=== PATIENT | male | born 1935 | race Caucasian/White ===

== ENCOUNTER 2022-01-01 10:46 | Emergency (ER) | payer OTHER, BC ==
[2022-01-01 11:03] VITALS: BP 135/72; PULSE 72; TEMP 98.7; BMI 18.3
[2022-01-01] MEDS ORDERED: DIPHTH,PERTUSS(ACELL),TET 0.5 ML DISP.SYRIN IM ONE ×2 (11:08)
== END 2022-01-01 11:20 | disposition home or self-care (01) ==
LOC: FER 10:46
PROC: 3E0234Z Introduction of Serum, Toxoid and Vaccine into Muscle, Percutaneous Approach (ICD-10-PCS; principal; 2022-01-01)
DX: S51.802A Unspecified open wound of left forearm, initial encounter (principal); R22.32 Localized swelling, mass and lump, left upper limb; Y99.9 Unspecified external cause status
CPT/HCPCS: 90471; 90715; 99284-25

== ENCOUNTER 2022-01-11 12:33 | Observation (INO) | payer OTHER, BC ==
[2022-01-11 13:37] LABS: INR 1.15 (0.83-1.09); PROTHROMBIN TIME (PATIENT) 13.2 SEC (9.7-13.0)
[2022-01-11 13:40] LABS: ACTIVATED PTT 26.1 SECONDS (25.2-36.5); HEMOGLOBIN 7.3 G/dL (11.7-16.9); MCH 26.7 pg (25.7-33.7); MEAN CELL VOLUME 80.9 fl (80-96); MEAN PLT VOLUME 10.1 fl (7.5-11.1); PLATELET COUNT 121.8 10^3/uL (134-434); RBC 2.72 10^6/uL (4.00-5.60); RDW 19.5 % (11.9-15.9); WHITE BLOOD COUNT 2.9 10^3/uL (4.0-10.8)
[2022-01-11 13:44] LABS: ALBUMIN 3.7 g/dl (3.4-5.0); BILIRUBIN,TOTAL 0.6 mg/dl (0.2-1); CALCIUM 9.2 mg/dl (8.5-10); CREATININE 1.4 mg/dl (0.55-1.3); TOT PROT 6.6 g/dl (6.4-8.2)
[2022-01-11 14:14] LABS: ADD RBC MORPHOLOGY YES
[2022-01-11 14:15] LABS: PLATELET ESTIMATE DECREASED
[2022-01-11 14:17] LABS: ANISOCYTOSIS 1+
[2022-01-11] MEDS ORDERED: ONDANSETRON *ODT* 4 MG TABLET SL PRN (15:45)
[2022-01-11 16:32] VITALS: BMI 17.8
[2022-01-11] MEDS: metFORMIN HCL 500 MG TABLET (FP) PO SCH (16:51)
[2022-01-11] MEDS: INSULIN SLIDING SCALE (NOVOLOG) 1 VIAL SQ SCH ×2 (16:52→21:30)
[2022-01-11] MEDS ORDERED: ATORVASTATIN CA 20 MG TABLET (FP) PO SCH (22:00)
[2022-01-11] MEDS ORDERED: FUROSEMIDE 40 MG/4 ML INJECTABLE VIAL IVPUSH ONE (22:05)
[2022-01-12] MEDS: INSULIN SLIDING SCALE (NOVOLOG) 1 VIAL SQ SCH ×2 (06:31→10:54)
[2022-01-12] MEDS: metFORMIN HCL 500 MG TABLET (FP) PO SCH (06:31)
[2022-01-12] MEDS ORDERED: sitaGLIPtin PHOSPHATE 50 MG TABLET PO SCH (07:00)
[2022-01-12 07:57] VITALS: BP 133/54; PULSE 53; TEMP 98.6
[2022-01-12 08:23] LABS: HEMATOCRIT 31.6 % (35.4-49); HEMOGLOBIN 10.5 G/dL (11.7-16.9); MCHC 33.2 g/dl (32.0-35.9); MEAN CELL VOLUME 84.4 fl (80-96); MEAN PLT VOLUME 9.7 fl (7.5-11.1); PLATELET COUNT 103.2 10^3/uL (134-434); RBC 3.74 10^6/uL (4.00-5.60); RDW 18.9 % (11.9-15.9)
[2022-01-12 08:28] LABS: ALBUMIN 3.8 g/dl (3.4-5.0); BILIRUBIN,TOTAL 2.1 mg/dl (0.2-1); CALCIUM 9.2 mg/dl (8.5-10); CREATININE 1.3 mg/dl (0.55-1.3); MAGNESIUM 1.9 mg/dL (1.8-2.4); TOT PROT 6.7 g/dl (6.4-8.2)
[2022-01-12 09:18] LABS: ADD RBC MORPHOLOGY YES
[2022-01-12 09:19] LABS: PLATELET ESTIMATE DECREASED
[2022-01-12 09:20] LABS: ANISOCYTOSIS 1+
[2022-01-12] MEDS ORDERED: PANTOPRAZOLE 40 MG TABLET PO SCH (10:00)
== END 2022-01-12 12:31 | disposition home or self-care (01) ==
LOC: FER 12:33 → FM/S 13:29 → INTOOBSV 13:29
PROVIDERS: ADMIT Internal Medicine; ATTEND Nurse Practitioner Acute Care
PROC: 30233N1 Transfusion of Nonautologous Red Blood Cells into Peripheral Vein, Percutaneous Approach (ICD-10-PCS; principal; 2022-01-11)
PROC: 3E033GC Introduction of Other Therapeutic Substance into Peripheral Vein, Percutaneous Approach (ICD-10-PCS; 2022-01-11)
DX: D64.9 Anemia, unspecified (principal); E11.9 Type 2 diabetes mellitus without complications; R06.00 Dyspnea, unspecified; E78.5 Hyperlipidemia, unspecified; R06.09 Other forms of dyspnea; Z85.46 Personal history of malignant neoplasm of prostate; I10 Essential (primary) hypertension; Z95.1 Presence of aortocoronary bypass graft
CPT/HCPCS: 36415; 36430; 71045-TC-FY; 80053; 81003; 82962; 83735; 85025; 85610; 85730; 86850; 86900; 86901; 86922; 87086; 93005; 96374; 99285-25; C9803-CS; G0378; P9058; U0003; U0005

== ENCOUNTER 2022-07-25 09:47 | Day surgery (SDC) | payer OTHER, BC ==
[2022-07-25] MEDS ORDERED: IRON SUCROSE IVPB ONE (11:00)
[2022-07-25] MEDS ORDERED: SODIUM CHLORIDE 0.9% IVPB ONE (11:00)
[2022-07-25 17:13] VITALS: BP 130/56; PULSE 76; RESP 20; TEMP 98.2
== END 2022-07-25 11:40 | disposition home or self-care (01) ==
LOC: JONCNONCHE 09:47 → J7W 09:48 → JONCNONCHE 11:40
PROVIDERS: ATTEND Internal Medicine Hematology & Oncology
PROC: 3E033GC Introduction of Other Therapeutic Substance into Peripheral Vein, Percutaneous Approach (ICD-10-PCS; principal; 2022-07-25)
DX: D50.9 Iron deficiency anemia, unspecified (principal)
CPT/HCPCS: 96365; J1756

== ENCOUNTER 2022-08-01 09:51 | Day surgery (SDC) | payer OTHER, BC ==
[2022-08-01] MEDS ORDERED: IRON SUCROSE INJECTION 200 MG in SODIUM CHLORIDE 100 ML IVPB ONE (10:00)
[2022-08-01 10:49] VITALS: RESP 20
[2022-08-01 13:55] VITALS: BP 132/63; PULSE 71; TEMP 98.3
== END 2022-08-01 11:30 | disposition home or self-care (01) ==
LOC: JONCNONCHE 09:51
PROVIDERS: ATTEND Internal Medicine Hematology & Oncology
PROC: 3E033GC Introduction of Other Therapeutic Substance into Peripheral Vein, Percutaneous Approach (ICD-10-PCS; principal; 2022-08-01)
DX: D50.9 Iron deficiency anemia, unspecified (principal)
CPT/HCPCS: 96365; J1756

== ENCOUNTER 2022-08-08 09:45 | Day surgery (SDC) | payer OTHER, BC ==
[2022-08-08] MEDS ORDERED: IRON SUCROSE INJECTION 200 MG in SODIUM CHLORIDE 100 ML IVPB ONE (10:00)
[2022-08-08 15:18] VITALS: BP 135/56; PULSE 67; RESP 20; TEMP 98.3
== END 2022-08-08 11:30 | disposition home or self-care (01) ==
LOC: JONCNONCHE 09:45
PROVIDERS: ATTEND Internal Medicine Hematology & Oncology
PROC: 3E033GC Introduction of Other Therapeutic Substance into Peripheral Vein, Percutaneous Approach (ICD-10-PCS; principal; 2022-08-08)
DX: D50.9 Iron deficiency anemia, unspecified (principal)
CPT/HCPCS: 96365; J1756

== ENCOUNTER 2022-08-15 10:26 | Day surgery (SDC) | payer OTHER, BC ==
[~2022-08-15 10:26] MED LIST: IRON SUCROSE INJECTION 200 MG in SODIUM CHLORIDE 100 ML IVPB ONE
[2022-08-15 14:45] VITALS: BP 140/56; PULSE 71; RESP 20; TEMP 98
== END 2022-08-15 11:30 | disposition home or self-care (01) ==
LOC: JONCNONCHE 10:26 → J7W 10:27 → JONCNONCHE 11:30
PROVIDERS: ATTEND Internal Medicine Hematology & Oncology
PROC: 3E033GC Introduction of Other Therapeutic Substance into Peripheral Vein, Percutaneous Approach (ICD-10-PCS; principal; 2022-08-15)
DX: D50.9 Iron deficiency anemia, unspecified (principal)
CPT/HCPCS: 96365; J1756